=== PATIENT | female | born 1970 | race Asian ===

== ENCOUNTER 2017-04-09 02:41 | Inpatient (IN) | payer OTHER ==
[~2017-04-09] VITALS: Ht 152.4 cm; Wt 68.1 kg
[~2017-04-09 02:41] MED LIST: GABA-529 PO; METO25 PO; SIMV-259 PO; SITA50 PO
[2017-04-09 02:52] LABS: GLUCOSE,POINT OF CARE 254 MG/DL (70-110)
[2017-04-09] MEDS ORDERED: ASPIRIN 325 MG TABLET PO ONE (03:00)
[2017-04-09] MEDS ORDERED: FUROSEMIDE 40 MG/4 ML VIAL IVP ONE (03:00)
[2017-04-09] MEDS ORDERED: NITROGLYCERIN 2% (1 GM=INCH) PACKET TP ONE (03:00)
[2017-04-09 03:19] LABS: BASOPHILS # (AUTO) 0.02 K/uL (0.00-0.20); BASOPHILS % (AUTO) 0.2 % (0.0-2.0); EOSINOPHILS % (AUTO) 2.24 % (1.0-6.0); HEMATOCRIT 30.4 % (36-46); HEMOGLOBIN 10.7 g/dL (12.0-16.0); LYMPHOCYTES # (AUTO) 1.5 K/uL (1.0-4.8); LYMPHOCYTES % (AUTO) 16.2 % (22.0-44.0); MEAN CORPUSCULAR HEMOGLOBIN 32.6 pg (26.0-34.0); MEAN CORPUSCULAR HGB CONC 35.2 G/dL (31.0-37.0); MEAN CORPUSCULAR VOLUME 93 fL (80-100); MONOCYTES # (AUTO) 0.4 K/uL (0.1-1.0); MONOCYTES % (AUTO) 4.1 % (2.0-9.0); NEUTROPHILS % (AUTO) 77.2 % (40.0-70.0); PLATELET COUNT (AUTO) 221 K/uL (150-450); RED BLOOD CELL COUNT(AUTO) 3.28 MIL/uL (4.00-5.20); RED CELL DISTRIBUTION WIDTH 13.6 % (11.5-14.5); WHITE BLOOD COUNT (AUTO) 9.1 K/uL (4.5-11.0)
[2017-04-09 03:37] LABS: LACTIC ACID 1.2 mmol/L (0.4-2.0)
[2017-04-09 03:41] LABS: ALANINE AMINOTRANSFERASE 14 U/L (12-78); ALBUMIN 1.8 g/dL (3.4-5.0); ANION GAP 16 mmol/L (8-16); ASPARTATE AMINOTRANSFERASE 29 U/L (15-37); BILIRUBIN,TOTAL 0.2 mg/dL (0.1-1.0); CARBON DIOXIDE 15 mmol/L (22-29); CHLORIDE 105 mmol/L (98-107); CREATININE 7.75 mg/dL (0.60-1.30); GLOMERULAR FILTR. RATE CALC 6 mL/min (>60); SODIUM SERUM 136 mmol/L (136-145); TOTAL PROTEIN, SERUM 7.9 g/dL (6.4-8.2); UREA NITROGEN, BLOOD 67 mg/dL (7-18)
[2017-04-09 03:44] LABS: CALCIUM, TOTAL 5.8 mg/dL (8.8-10.5)
[2017-04-09 03:45] LABS: B-TYPE NATRIURETIC PEPTIDE 1310 pg/mL (0-100)
[2017-04-09] MEDS ORDERED: ACETAMINOPHEN 325 MG TABLET PO PRN ×2 (04:30→08:45)
[2017-04-09] MEDS ORDERED: AmLODIPine BESYLATE 5 MG TABLET PO ONE (04:30)
[2017-04-09] MEDS ORDERED: BUMETANIDE 0.25 MG/ML 10 ML VIAL IVP ONE (04:30)
[2017-04-09] MEDS ORDERED: ONDANSETRON HCL 4 MG/2 ML VIAL IVP PRN (04:30)
[2017-04-09] MEDS ORDERED: 0.9% SODIUM CHLORIDE 10 ML SYRINGE IVP PRN (04:30)
[2017-04-09 04:46] LABS: APPEARANCE,URINE CLEAR (CLEAR); GLUCOSE, URINE (UA) 500 mg/dL (NEGATIVE); KETONES,URINE NEGATIVE (NEGATIVE); LEUKOCYTE ESTERASE ,URINE NEGATIVE (NEGATIVE); OCCULT BLOOD,URINE MODERATE (NEGATIVE); PH,URINE 6.5 (5.0-8.0); PROTEIN,URINE SEE CONFIRM (NEGATIVE)
[2017-04-09 05:30] LABS: SULFOSALICYLIC ACID,URINE 3+ (Negative)
[2017-04-09] MEDS ORDERED: ONDANSETRON HCL 4 MG/2 ML VIAL IVP ONE (05:30)
[2017-04-09] MEDS ORDERED: CALCIUM CHLORIDE 100 MG/ML 10 ML SYRINGE IVP ONE (05:30)
[2017-04-09] MEDS ORDERED: CITRIC ACID/SODIUM CITRATE 30 ML SOLUTION UDCUP PO ONE (05:30)
[2017-04-09 05:31] LABS: WBC,URINE None Seen /HPF (0-5)
[2017-04-09 05:52] VITALS: BP 169/97
[2017-04-09 07:10] VITALS: BP 164/98
[2017-04-09] MEDS ORDERED: ALBUTEROL SULFATE 2.5 MG/0.5 ML NEB SOLUTION NEB PRN (08:45)
[2017-04-09] MEDS ORDERED: BISACODYL 10 MG RECTAL RECTAL SUPPOSITORY PR PRN (08:45)
[2017-04-09] MEDS ORDERED: DEXTROSE 50%-WATER 25 GM/50 ML SYRINGE IVP PRN (09:00)
[2017-04-09] MEDS: ASPIRIN 81 MG CHEWABLE TABLET PO SCH (09:59)
[2017-04-09] MEDS: HEPARIN SODIUM,PORCINE 5,000 UNITS/ML VIAL SQ SCH ×2 (09:59→20:43)
[2017-04-09] MEDS: PANTOPRAZOLE SODIUM 40 MG DR TABLET PO SCH (09:59)
[2017-04-09] MEDS: DOCUSATE SODIUM 100 MG CAPSULE PO SCH ×2 (09:59→21:00)
[2017-04-09] MEDS: VITAMIN B COMP/VIT C/FOLIC ACID CAPSULE PO SCH (09:59)
[2017-04-09 10:46] VITALS: BP 161/99
[2017-04-09] MEDS ORDERED: SIMV-260 PO (11:17)
[2017-04-09] MEDS: LOSARTAN POTASSIUM 25 MG TABLET PO SCH ×2 (12:07→20:42)
[2017-04-09] MEDS: INSULIN ASPART 100 UNITS/ML SQ PRN ×3 (12:10→20:42)
[2017-04-09] MEDS: FUROSEMIDE 40 MG TABLET PO SCH (14:12)
[2017-04-09] MEDS: SODIUM BICARBONATE 650 MG TABLET PO SCH (14:46)
[2017-04-09 16:08] VITALS: BP 154/84
[2017-04-09 18:02] LABS: GLUCOSE COMMENT 1 Received Meds; GLUCOSE,POINT OF CARE 208 MG/DL (70-110)
[2017-04-09 19:56] VITALS: BP 158/89
[2017-04-09 23:42] LABS: GLUCOSE COMMENT 1 Received Meds; GLUCOSE,POINT OF CARE 185 MG/DL (70-110)
[2017-04-09 23:49] VITALS: BP 177/94
[2017-04-10 04:21] VITALS: BP 141/87
[2017-04-10 06:07] LABS: BASOPHILS # (AUTO) 0.05 K/uL (0.00-0.20); BASOPHILS % (AUTO) 0.6 % (0.0-2.0); EOSINOPHILS # (AUTO) 0.22 K/uL (0.00-0.70); EOSINOPHILS % (AUTO) 2.75 % (1.0-6.0); HEMATOCRIT 23.7 % (36-46); HEMOGLOBIN 8.2 g/dL (12.0-16.0); LYMPHOCYTES # (AUTO) 2.5 K/uL (1.0-4.8); LYMPHOCYTES % (AUTO) 31.1 % (22.0-44.0); MEAN CORPUSCULAR HGB CONC 34.8 G/dL (31.0-37.0); MEAN CORPUSCULAR VOLUME 92 fL (80-100); MONOCYTES # (AUTO) 0.5 K/uL (0.1-1.0); NEUTROPHILS # (AUTO) 4.8 K/uL (1.8-7.7); NEUTROPHILS % (AUTO) 59.6 % (40.0-70.0); PLATELET COUNT (AUTO) 204 K/uL (150-450); RED BLOOD CELL COUNT(AUTO) 2.58 MIL/uL (4.00-5.20); RED CELL DISTRIBUTION WIDTH 13.4 % (11.5-14.5); WHITE BLOOD COUNT (AUTO) 8.1 K/uL (4.5-11.0)
[2017-04-10 06:32] LABS: GLUCOSE COMMENT 1 Received Meds; GLUCOSE,POINT OF CARE 184 MG/DL (70-110)
[2017-04-10 06:35] LABS: CHOL/HDL RATIO 8.6 (3.9-5.7); CREATININE 8.25 mg/dL (0.60-1.30); MAGNESIUM 1.5 mg/dL (1.80-2.40); PHOSPHORUS 6.8 mg/dL (2.5-4.9); POTASSIUM 4.5 mmol/L (3.5-5.1)
[2017-04-10 06:46] LABS: CALCIUM, TOTAL 6.1 mg/dL (8.8-10.5)
[2017-04-10 07:05] LABS: HEMOGLOBIN A1C 9.4 % (4.5-6.2)
[2017-04-10 07:25] VITALS: BP 137/85
[2017-04-10] MEDS: VITAMIN B COMP/VIT C/FOLIC ACID CAPSULE PO SCH (08:08)
[2017-04-10] MEDS: LOSARTAN POTASSIUM 25 MG TABLET PO SCH ×2 (08:08→20:20)
[2017-04-10] MEDS: PANTOPRAZOLE SODIUM 40 MG DR TABLET PO SCH (08:08)
[2017-04-10] MEDS: SODIUM BICARBONATE 650 MG TABLET PO SCH (08:08)
[2017-04-10] MEDS: AmLODIPine BESYLATE 10 MG TABLET PO SCH (08:08)
[2017-04-10] MEDS: DOCUSATE SODIUM 100 MG CAPSULE PO SCH ×2 (08:08→20:20)
[2017-04-10] MEDS: FUROSEMIDE 40 MG TABLET PO SCH (08:09)
[2017-04-10] MEDS: ASPIRIN 81 MG CHEWABLE TABLET PO SCH (08:09)
[2017-04-10] MEDS: HEPARIN SODIUM,PORCINE 5,000 UNITS/ML VIAL SQ SCH ×2 (08:10→20:20)
[2017-04-10] MEDS ORDERED: CALCIUM GLUCONATE 2,000 MG in DEXTROSE 5%-WATER 50 ML IV ONE (08:15)
[2017-04-10] MEDS ORDERED: EPOETIN ALFA 10,000 UNITS/ML VIAL SQ SCH (09:00)
[2017-04-10] MEDS: MAGNESIUM OXIDE 400 MG TABLET PO SCH ×3 (10:51→20:20)
[2017-04-10] MEDS: CALCITRIOL 0.25 MCG CAPSULE PO SCH (10:51)
[2017-04-10 11:13] VITALS: BP 157/81
[2017-04-10] MEDS: INSULIN ASPART 100 UNITS/ML SQ PRN ×3 (12:48→21:10)
[2017-04-10] MEDS: CALCIUM ACETATE 667 MG CAPSULE PO SCH ×2 (13:07→18:42)
[2017-04-10 16:05] VITALS: BP 182/98
[2017-04-10] MEDS ORDERED: CloNIDine HCL 0.1 MG TABLET PO PRN (16:15)
[2017-04-10 19:57] VITALS: BP 149/79
[2017-04-10 23:17] LABS: GLUCOSE,POINT OF CARE 137 MG/DL (70-110)
[2017-04-11 00:12] LABS: GLUCOSE COMMENT 1 Received Meds; GLUCOSE,POINT OF CARE 255 MG/DL (70-110)
[2017-04-11 00:31] VITALS: BP 151/87
[2017-04-11 05:16] VITALS: BP 140/66
[2017-04-11 06:44] LABS: CALCIUM, TOTAL 6.4 mg/dL (8.8-10.5); CREATININE 8.54 mg/dL (0.60-1.30); MAGNESIUM 1.6 mg/dL (1.80-2.40); PHOSPHORUS 6.5 mg/dL (2.5-4.9)
[2017-04-11] MEDS: DOCUSATE SODIUM 100 MG CAPSULE PO SCH (08:01)
[2017-04-11] MEDS: CALCIUM ACETATE 667 MG CAPSULE PO SCH ×2 (08:02→11:37)
[2017-04-11] MEDS: HEPARIN SODIUM,PORCINE 5,000 UNITS/ML VIAL SQ SCH (08:02)
[2017-04-11] MEDS: ASPIRIN 81 MG CHEWABLE TABLET PO SCH (08:03)
[2017-04-11] MEDS: AmLODIPine BESYLATE 10 MG TABLET PO SCH (08:03)
[2017-04-11] MEDS: PANTOPRAZOLE SODIUM 40 MG DR TABLET PO SCH (08:03)
[2017-04-11] MEDS: SODIUM BICARBONATE 650 MG TABLET PO SCH (08:04)
[2017-04-11] MEDS: LOSARTAN POTASSIUM 25 MG TABLET PO SCH (08:04)
[2017-04-11] MEDS: CALCITRIOL 0.25 MCG CAPSULE PO SCH (08:04)
[2017-04-11] MEDS: VITAMIN B COMP/VIT C/FOLIC ACID CAPSULE PO SCH (08:05)
[2017-04-11] MEDS: FUROSEMIDE 40 MG TABLET PO SCH (08:05)
[2017-04-11 08:26] VITALS: BP 152/86
[2017-04-11] MEDS ORDERED: CALCIUM GLUCONATE 100 MG/ML 10 ML IVP ONE (10:00)
[2017-04-11 10:17] LABS: BASOPHILS # (AUTO) 0.04 K/uL (0.00-0.20); BASOPHILS % (AUTO) 0.5 % (0.0-2.0); EOSINOPHILS # (AUTO) 0.19 K/uL (0.00-0.70); EOSINOPHILS % (AUTO) 2.46 % (1.0-6.0); HEMATOCRIT 23.7 % (36-46); HEMOGLOBIN 8.2 g/dL (12.0-16.0); LYMPHOCYTES # (AUTO) 2.1 K/uL (1.0-4.8); LYMPHOCYTES % (AUTO) 27.4 % (22.0-44.0); MEAN CORPUSCULAR HEMOGLOBIN 31.4 pg (26.0-34.0); MEAN CORPUSCULAR HGB CONC 34.7 G/dL (31.0-37.0); MEAN CORPUSCULAR VOLUME 91 fL (80-100); MONOCYTES # (AUTO) 0.4 K/uL (0.1-1.0); MONOCYTES % (AUTO) 5.2 % (2.0-9.0); NEUTROPHILS # (AUTO) 4.9 K/uL (1.8-7.7); NEUTROPHILS % (AUTO) 64.4 % (40.0-70.0); PLATELET COUNT (AUTO) 219 K/uL (150-450); RED BLOOD CELL COUNT(AUTO) 2.61 MIL/uL (4.00-5.20); RED CELL DISTRIBUTION WIDTH 13.3 % (11.5-14.5); WHITE BLOOD COUNT (AUTO) 7.6 K/uL (4.5-11.0)
[2017-04-11] MEDS ORDERED: CHOLECALCIFEROL (VIT D3) 1,000 UNITS TABLET PO SCH (11:00)
[2017-04-11] MEDS ORDERED: MAGNESIUM OXIDE 400 MG TABLET PO ONE (11:15)
[2017-04-11 12:06] VITALS: BP 166/90
[2017-04-11] MEDS: INSULIN ASPART 100 UNITS/ML SQ PRN (12:26)
[2017-04-11] MEDS ORDERED: ASPI81TA39 PO (13:19)
[2017-04-11] MEDS ORDERED: AMLO-512 PO (13:19)
[2017-04-11] MEDS ORDERED: FURO40 PO (13:20)
[2017-04-11] MEDS ORDERED: FOLI0.8T2 PO (13:21)
[2017-04-11] MEDS ORDERED: SODI650T PO (13:21)
[2017-04-11] MEDS ORDERED: ATOR20TA86 PO (13:22)
[2017-04-11] MEDS ORDERED: PHOSLOC PO (13:22)
[2017-04-11] MEDS ORDERED: CALC0.253 PO (13:23)
[2017-04-11] MEDS ORDERED: VITAD1000 PO (13:24)
[2017-04-11 15:37] LABS: GLUCOSE,POINT OF CARE 117 MG/DL (70-110)
[2017-04-11 15:47] LABS: GLUCOSE COMMENT 1 Received Meds; GLUCOSE,POINT OF CARE 152 MG/DL (70-110)
[2017-04-11] MEDS ORDERED: MAGNESIUM OXIDE 400 MG TABLET PO SCH (16:00)
== END 2017-04-11 14:25 | disposition home or self-care (01) | DRG 683 ==
LOC: EMS 02:42 → 5S 04:16
PROVIDERS: ADMIT Internal Medicine; ATTEND Internal Medicine
DX: N17.9 Acute kidney failure, unspecified (principal); E44.0 Moderate protein-calorie malnutrition; E11.21 Type 2 diabetes mellitus with diabetic nephropathy; I12.0 Hypertensive chronic kidney disease with stage 5 chronic kidney disease or end stage renal disease; E11.65 Type 2 diabetes mellitus with hyperglycemia; E83.51 Hypocalcemia; M10.9 Gout, unspecified; E83.42 Hypomagnesemia; E83.39 Other disorders of phosphorus metabolism; D64.9 Anemia, unspecified; N18.6 End stage renal disease; E11.22 Type 2 diabetes mellitus with diabetic chronic kidney disease; D63.8 Anemia in other chronic diseases classified elsewhere; E78.5 Hyperlipidemia, unspecified; Z91.14 Patient's other noncompliance with medication regimen; Z83.3 Family history of diabetes mellitus; Z98.51 Tubal ligation status; Z68.29 Body mass index [BMI] 29.0-29.9, adult
CPT/HCPCS: 76770; 82306; 82607; 82746; 82962; 83036; 83540; 83550; 83605; 83735; 83970; 84100; 93005; 93306; 93970; 96374; 96375; 99291; G0480; J0610; J0885; J1644; J1940; J2405; J3490; J7060

== ENCOUNTER 2017-05-01 11:37 | Emergency (ER) | payer OTHER ==
[~2017-05-01] VITALS: Ht 152.4 cm; Wt 65.9 kg
[~2017-05-01 11:37] MED LIST changes: +AMLO-512 PO; +ASPI81TA39 PO; +CALC0.253 PO; +FOLI0.8T2 PO; +FURO40 PO; -METO25 PO; +PHOSLOC PO; -SIMV-259 PO; +SIMV-260 PO; -SITA50 PO; +SODI650T PO; +VITAD1000 PO
[2017-05-01] MEDS ORDERED: GABA-531 PO (11:49)
[2017-05-01] MEDS ORDERED: FOLI1TAB61 PO (11:49)
[2017-05-01] MEDS ORDERED: FURO40TA5 PO (11:49)
[2017-05-01] MEDS ORDERED: AMLO10TA55 PO (11:49)
[2017-05-01] MEDS ORDERED: SODI650T PO (11:49)
[2017-05-01] MEDS ORDERED: CALC667C PO (11:49)
[2017-05-01] MEDS ORDERED: ASPI81TA33 PO (11:49)
[2017-05-01 11:57] LABS: GLUCOSE,POINT OF CARE 203 MG/DL (70-110)
[2017-05-01 12:52] LABS: BASOPHILS % (AUTO) 0.4 % (0.0-2.0); EOSINOPHILS % (AUTO) 0.9 % (1.0-6.0); HEMATOCRIT 27.5 % (36-46); HEMOGLOBIN 9.4 g/dL (12.0-16.0); LYMPHOCYTES # (AUTO) 1.8 K/uL (1.0-4.8); LYMPHOCYTES % (AUTO) 19.6 % (22.0-44.0); MEAN CORPUSCULAR HEMOGLOBIN 30.7 pg (26.0-34.0); MEAN CORPUSCULAR VOLUME 90 fL (80-100); MONOCYTES # (AUTO) 0.4 K/uL (0.1-1.0); MONOCYTES % (AUTO) 4.4 % (2.0-9.0); NEUTROPHILS # (AUTO) 6.8 K/uL (1.8-7.7); NEUTROPHILS % (AUTO) 74.7 % (40.0-70.0); PLATELET COUNT (AUTO) 290 K/uL (150-450); RED BLOOD CELL COUNT(AUTO) 3.04 MIL/uL (4.00-5.20); RED CELL DISTRIBUTION WIDTH 13.5 % (11.5-14.5); WHITE BLOOD COUNT (AUTO) 9.1 K/uL (4.5-11.0)
[2017-05-01 12:55] LABS: CALCIUM, TOTAL 8.2 mg/dL (8.8-10.5); CREATININE 9.93 mg/dL (0.60-1.30); POTASSIUM 5.5 mmol/L (3.5-5.1)
[2017-05-01 13:02] LABS: ALBUMIN 2.2 g/dL (3.4-5.0); BILIRUBIN,TOTAL 0.2 mg/dL (0.1-1.0); TOTAL PROTEIN, SERUM 7.6 g/dL (6.4-8.2)
[2017-05-01] MEDS ORDERED: AMPICILLIN SODIUM/SULBACTAM NA 1.5 GM in SODIUM CHLORIDE 0.9% 50 ML IV ONE (15:00)
[2017-05-01] MEDS ORDERED: CLINDAMYCIN 600 MG/D5% WATER 50 ML IV ONE (15:15)
[2017-05-01 16:50] VITALS: BP 170/91
== END 2017-05-01 17:13 | disposition short-term general hospital (02) ==
LOC: EMS 11:41
DX: J39.0 Retropharyngeal and parapharyngeal abscess (principal); R91.1 Solitary pulmonary nodule; I12.0 Hypertensive chronic kidney disease with stage 5 chronic kidney disease or end stage renal disease; E11.22 Type 2 diabetes mellitus with diabetic chronic kidney disease; N18.6 End stage renal disease; Z79.82 Long term (current) use of aspirin
CPT/HCPCS: 36415; 70490; 80053; 82962; 84703; 85025; 96374; 96375; 99285; J0295; J3490; J7050

== ENCOUNTER 2019-07-16 13:24 | Emergency (ER) | payer MEDICARE, OTHER ==
[~2019-07-16] VITALS: Ht 160 cm; Wt 72.7 kg
[~2019-07-16 13:24] MED LIST changes: -AMLO-512 PO; +AMLO10TA55 PO; +ASPI81TA87 PO; +CALC667C PO; +CHOL100018 PO; +FOLI1TAB61 PO; -FURO40 PO; +FURO40TA5 PO; -GABA-529 PO; +GABA-531 PO; -PHOSLOC PO; -VITAD1000 PO
[2019-07-16] MEDS ORDERED: ATOR40TA28 PO (13:45)
[2019-07-16] MEDS ORDERED: OS500 PO (13:45)
[2019-07-16] MEDS ORDERED: INSLAN SQ (13:45)
[2019-07-16] MEDS ORDERED: NIFE30TA5 PO (13:45)
[2019-07-16] MEDS ORDERED: SUCR500T PO (13:45)
[2019-07-16] MEDS ORDERED: ATOR20TA86 PO (13:45)
[2019-07-16] MEDS ORDERED: VIT-13 PO (13:45)
[2019-07-16 13:47] LABS: GLUCOSE,POINT OF CARE 358 MG/DL (70-110)
[2019-07-16] MEDS ORDERED: BENZONATATE 100 MG CAPSULE PO ONE (15:15)
[2019-07-16] MEDS ORDERED: ALBUTEROL SULFATE HFA 90 MCG/PUFF 8 GM INHALER IH ONE (15:15)
[2019-07-16 17:05] VITALS: BP 125/79
== END 2019-07-16 17:06 | disposition home or self-care (01) ==
LOC: EMS 13:25
DX: J40 Bronchitis, not specified as acute or chronic (principal); E11.9 Type 2 diabetes mellitus without complications; E78.00 Pure hypercholesterolemia, unspecified; I10 Essential (primary) hypertension; Z79.4 Long term (current) use of insulin; Z79.82 Long term (current) use of aspirin
CPT/HCPCS: 94640; J3535

== ENCOUNTER 2019-08-25 18:53 | Emergency (ER) | payer MEDICARE, OTHER ==
[~2019-08-25] VITALS: Ht 149.9 cm; Wt 59.1 kg
[~2019-08-25 18:53] MED LIST changes: -AMLO10TA55 PO; -ASPI81TA39 PO; +ATOR20TA86 PO; +ATOR40TA28 PO; -CALC0.253 PO; -CALC667C PO; -CHOL100018 PO; -FOLI0.8T2 PO; -FOLI1TAB61 PO; -FURO40TA5 PO; +INSLAN SQ; +NIFE30TA5 PO; +OS500 PO; -SIMV-260 PO; -SODI650T PO; +SUCR500T PO; +VIT-13 PO
[2019-08-25] MEDS ORDERED: CYCLOBENZAPRINE HCL 10 MG TABLET PO ONE (20:00)
[2019-08-25] MEDS ORDERED: KETOROLAC TROMETHAMINE 30 MG/ML VIAL IM ONE (20:00)
[2019-08-25 22:39] VITALS: BP 180/99
== END 2019-08-25 22:40 | disposition home or self-care (01) ==
LOC: EMS 18:54
DX: M54.12 Radiculopathy, cervical region (principal); M62.838 Other muscle spasm; I10 Essential (primary) hypertension; E11.9 Type 2 diabetes mellitus without complications; E78.00 Pure hypercholesterolemia, unspecified; Z98.51 Tubal ligation status; Z79.899 Other long term (current) drug therapy; Z79.82 Long term (current) use of aspirin; Z79.4 Long term (current) use of insulin
CPT/HCPCS: 82962; 96372; 99283; J1885

== ENCOUNTER 2021-08-12 01:20 | Emergency (ER) | payer MEDICARE, OTHER ==
[~2021-08-12] VITALS: Ht 154.9 cm; Wt 63.0 kg
[2021-08-12] VITALS (9 sets, daily range): BP systolic 137–175; BP diastolic 62–101
[~2021-08-12 01:20] MED LIST changes: -ATOR40TA28 PO; +GABA-1181 PO; -GABA-531 PO; +LACT10SO10 PO
[2021-08-12] MEDS ORDERED: NITROGLYCERIN 50 MG/D5% WATER 250 ML IV PRN (01:45)
[2021-08-12 02:00] LABS: BASOPHILS % (AUTO) 0.8 % (0.0-2.0); EOSINOPHILS % (AUTO) 3.4 % (1.0-6.0); HEMATOCRIT 31.7 % (36-46); HEMOGLOBIN 10.8 g/dL (12.0-16.0); LYMPHOCYTES % (AUTO) 18.3 % (22.0-44.0); MEAN CORPUSCULAR HEMOGLOBIN 30.6 pg (26.0-34.0); MEAN CORPUSCULAR HGB CONC 33.9 G/dL (31.0-37.0); MEAN CORPUSCULAR VOLUME 90 fL (80-100); MONOCYTES # (AUTO) 0.8 K/uL (0.1-1.0); MONOCYTES % (AUTO) 7.2 % (2.0-9.0); NEUTROPHILS # (AUTO) 7.7 K/uL (1.8-7.7); NEUTROPHILS % (AUTO) 70.3 % (40.0-70.0); PLATELET COUNT (AUTO) 206 K/uL (150-450); RED BLOOD CELL COUNT(AUTO) 3.51 MIL/uL (4.00-5.20); RED CELL DISTRIBUTION WIDTH 16.7 % (11.5-14.5)
[2021-08-12 02:05] LABS: CALCIUM, TOTAL 8.5 mg/dL (8.8-10.5); CREATININE 8.84 mg/dL (0.60-1.30); POTASSIUM 4.3 mmol/L (3.5-5.1)
[2021-08-12 02:09] LABS: INR 0.9 (0.9-1.1)
[2021-08-12 02:29] LABS: ALBUMIN 3.5 g/dL (3.4-5.0); BILIRUBIN,TOTAL 0.4 mg/dL (0.1-1.0); MAGNESIUM 2.5 mg/dL (1.80-2.40); PHOSPHORUS 3.7 mg/dL (2.5-4.9)
[2021-08-12] MEDS ORDERED: PIPERACILLIN/TAZO 3.375 GM/D5W 50 ML IV ONE (02:30)
[2021-08-12] MEDS ORDERED: VANCOMYCIN HCL 1 GM/D5% WATER 200 ML IV ONE (02:30)
[2021-08-12] MEDS ORDERED: AZITHROMYCIN 500 MG/NS 250 ML IV ONE (02:30)
[2021-08-12 02:37] LABS: COVID AG,FIA SOURCE NASOPHARYNGEAL
[2021-08-12] MEDS ORDERED: DEXTROSE 50%-WATER 25 GM/50 ML SYRINGE IVP PRN (03:30)
[2021-08-12] MEDS ORDERED: ACETAMINOPHEN 325 MG TABLET PO PRN (03:30)
[2021-08-12] MEDS ORDERED: ONDANSETRON HCL 4 MG/2 ML VIAL IVP PRN (03:30)
[2021-08-12] MEDS ORDERED: INSULIN LISPRO 100 UNITS/ML SQ PRN (03:30)
[2021-08-12] MEDS ORDERED: VANCOMYCIN HCL 1 GM/D5% WATER 200 ML IV PRN (04:00)
[2021-08-12] MEDS ORDERED: PIPERACILLIN SODIUM/TAZOBACTAM 0.75 GM in DEXTROSE 5%-WATER 50 ML IV PRN (04:30)
[2021-08-12] MEDS ORDERED: INSULIN GLARGINE,HUM.REC.ANLOG 100 UNITS/ML SQ SCH ×2 (06:30→21:00)
[2021-08-12 07:31] LABS: GLUCOMETER DEV NAME(LOC) ERT.5; GLUCOSE,POINT OF CARE 254 MG/DL (70-110)
[2021-08-12] MEDS ORDERED: MISC MED-CONVERTED FROM AMBULATORY (Sucroferric Oxyhydroxide (Velphoro) 500 MG) PO SCH (08:00)
[2021-08-12] MEDS: HEPARIN SODIUM,PORCINE 5,000 UNITS/ML VIAL SQ SCH ×2 (08:03→16:27)
[2021-08-12] MEDS: ASPIRIN 81 MG DR TABLET PO SCH (08:09)
[2021-08-12] MEDS: ATORVASTATIN CALCIUM 20 MG TABLET PO SCH (08:09)
[2021-08-12] MEDS: -POST HEMODIALYSIS NOTE- MISC SCH (09:00)
[2021-08-12] MEDS: CALCIUM CARBONATE 500 MG TABLET PO SCH (10:57)
[2021-08-12] MEDS: NIFEdipine 30 MG ER TABLET PO SCH (10:57)
[2021-08-12] MEDS: GABAPENTIN 300 MG CAPSULE PO SCH (10:57)
[2021-08-12] MEDS: VITAMIN B COMP/VIT C/FOLIC ACID CAPSULE PO SCH (10:57)
[2021-08-12] MEDS: PIPERACILLIN SODIUM/TAZOBACTAM 2.25 GM in DEXTROSE 5%-WATER 50 ML IV SCH ×2 (11:00→19:42)
[2021-08-12 21:26] LABS: GLUCOMETER DEV NAME(LOC) ERT.5; GLUCOSE,POINT OF CARE 265 MG/DL (70-110)
[2021-08-13] MEDS: HEPARIN SODIUM,PORCINE 5,000 UNITS/ML VIAL SQ SCH ×3 (00:09→16:40)
[2021-08-13] MEDS: PIPERACILLIN SODIUM/TAZOBACTAM 2.25 GM in DEXTROSE 5%-WATER 50 ML IV SCH ×2 (03:21→11:43)
[2021-08-13 08:08] LABS: BASOPHILS % (AUTO) 0.7 % (0.0-2.0); EOSINOPHILS % (AUTO) 4.5 % (1.0-6.0); HEMATOCRIT 32.5 % (36-46); HEMOGLOBIN 10.5 g/dL (12.0-16.0); LYMPHOCYTES # (AUTO) 1.9 K/uL (1.0-4.8); LYMPHOCYTES % (AUTO) 20.4 % (22.0-44.0); MEAN CORPUSCULAR HEMOGLOBIN 30.6 pg (26.0-34.0); MEAN CORPUSCULAR HGB CONC 32.3 G/dL (31.0-37.0); MEAN CORPUSCULAR VOLUME 95 fL (80-100); MONOCYTES # (AUTO) 0.7 K/uL (0.1-1.0); MONOCYTES % (AUTO) 7.8 % (2.0-9.0); NEUTROPHILS # (AUTO) 6.3 K/uL (1.8-7.7); NEUTROPHILS % (AUTO) 66.6 % (40.0-70.0); PLATELET COUNT (AUTO) 155 K/uL (150-450); RED BLOOD CELL COUNT(AUTO) 3.43 MIL/uL (4.00-5.20); RED CELL DISTRIBUTION WIDTH 16.6 % (11.5-14.5)
[2021-08-13 08:20] LABS: CALCIUM, TOTAL 8.2 mg/dL (8.8-10.5); MAGNESIUM 2.5 mg/dL (1.80-2.40)
[2021-08-13] MEDS: ASPIRIN 81 MG DR TABLET PO SCH (09:26)
[2021-08-13] MEDS: ATORVASTATIN CALCIUM 20 MG TABLET PO SCH (09:26)
[2021-08-13] MEDS: GABAPENTIN 300 MG CAPSULE PO SCH (09:26)
[2021-08-13] MEDS: -POST HEMODIALYSIS NOTE- MISC SCH (09:30)
[2021-08-13] MEDS: CALCIUM CARBONATE 500 MG TABLET PO SCH (11:00)
[2021-08-13] MEDS: NIFEdipine 30 MG ER TABLET PO SCH (11:00)
[2021-08-13] MEDS: VITAMIN B COMP/VIT C/FOLIC ACID CAPSULE PO SCH (11:00)
[2021-08-13 19:15] VITALS: BP 164/109
== END 2021-08-13 17:39 | disposition home or self-care (01) ==
LOC: EMS 01:21
DX: I12.0 Hypertensive chronic kidney disease with stage 5 chronic kidney disease or end stage renal disease (principal); E11.22 Type 2 diabetes mellitus with diabetic chronic kidney disease; N18.6 End stage renal disease; J96.90 Respiratory failure, unspecified, unspecified whether with hypoxia or hypercapnia; E78.00 Pure hypercholesterolemia, unspecified; Z79.4 Long term (current) use of insulin; Z79.899 Other long term (current) drug therapy; Z99.2 Dependence on renal dialysis; Z20.822 Contact with and (suspected) exposure to COVID-19
CPT/HCPCS: 36415; 71045; 80048; 80053; 82550; 82962; 83735; 83880; 84100; 84484; 85025; 85610; 85730; 87340; 87426; 93005; 94660; 96365; 96366 ×2; 96368; 96372; 99291; J0456; J1644 ×2; J1815; J2543 ×3; J3370; J7060 ×2; U0003; 90935; J3490

== ENCOUNTER 2022-09-24 15:34 | Emergency (ER) | payer MEDICARE, OTHER ==
[~2022-09-24] VITALS: Ht 152.4 cm; Wt 62.3 kg
[~2022-09-24 15:34] MED LIST changes: +NIFE-141 PO; -NIFE30TA5 PO
[2022-09-24] MEDS ORDERED: CALC667T6 PO (15:56)
[2022-09-24 18:49] VITALS: BP 130/60
== END 2022-09-24 19:51 | disposition home or self-care (01) ==
LOC: EMS 15:53
DX: S13.4XXA Sprain of ligaments of cervical spine, initial encounter (principal); S33.5XXA Sprain of ligaments of lumbar spine, initial encounter; E11.22 Type 2 diabetes mellitus with diabetic chronic kidney disease; I12.0 Hypertensive chronic kidney disease with stage 5 chronic kidney disease or end stage renal disease; N18.6 End stage renal disease; Z99.2 Dependence on renal dialysis; E78.00 Pure hypercholesterolemia, unspecified; Z98.51 Tubal ligation status; Z98.890 Other specified postprocedural states; V89.2XXA Person injured in unspecified motor-vehicle accident, traffic, initial encounter; Y93.89 Activity, other specified; Y92.89 Other specified places as the place of occurrence of the external cause; Y99.8 Other external cause status
CPT/HCPCS: 72040; 72070; 72100; 99283